=== PATIENT | female | born 1965 | race Caucasian/White ===

== ENCOUNTER → 2021-10-31 16:53 | Outpatient (CLI) | payer OTHER, MEDICAID, SELFPAY ==
[2021-09-25 11:37] VITALS: BMI 36.1
--- NOTE | 2021-10-31 | DI.US.S_ITS ---
PROCEDURE: US ABDOMEN COMPLETE INDICATIONS: elevation of levels of lactic acid dehydrogenase TECHNIQUE: Real-time scanning was performed of the abdominal and retroperitoneal organs, with image documentation. COMPARISON: [facility], CT, CT ANGIO CHEST PE PROTOCOL, 09/25/2021, 4:50. [facility], US, ABDOMEN COMPLETE, 03/30/2008, 15:20. FINDINGS: Liver: The liver measures 20 cm in length and demonstrates increased echogenicity throughout. Multiple hypoechoic foci are visualized within the liver, the largest of which measures 1.8 x 0.8 x 1.2 cm. Gallbladder: The gallbladder wall measures 1.4 mm in diameter. No stones, sludge, pericholecystic fluid, or sonographic [place] sign. Biliary ducts: Intrahepatic bile ducts are non-dilated. Extrahepatic bile duct caliber measures 3.1 mm. Normal is 6-7 mm or less in diameter, or 10 mm or less post-cholecystectomy. Pancreas: The pancreas is not well visualized. Spleen: The spleen measures 13.6 cm in length. Kidneys: Kidneys are normal in size and echotexture. Right kidney measures 12.8 cm long; left kidney measures 13.7 cm long. No hydronephrosis or nephrolithiasis. No solid masses. There are multiple anechoic renal cysts, the largest of which on the left measures 1.3 x 1.0 x 1.3 cm and the largest on the right measures 1.3 x 1.3 x 1.2 cm. Aorta: The proximal aorta is not visualized. Visualized aorta is normal in caliber at less than 3 cm. Iliacs: Proximal common iliac arteries are normal in caliber at less than 2.5 cm. IVC: Intrahepatic inferior vena cava is patent. Miscellaneous: No free abdominal fluid. IMPRESSION: 1. Increased hepatic echogenicity noted likely related to fatty infiltration of the liver but other sources of hepatocellular disease cannot be excluded. Multiple small hypoechoic foci are visualized within the liver which are incompletely characterized. Findings may represent focal fatty sparing or atypical hemangiomas. However, neoplasm cannot be excluded and hepatic protocol CT or MRI is recommended to further characterize findings. 2. Multiple simple renal cysts. 3. No cholelithiasis or findings to suggest choledocholithiasis or acute cholecystitis. Dictated by: Delia Francis M.D. on 11/01/2021 at 8:30 Approved by: Delia Francis M.D. on 11/01/2021 at 8:34
== END ==
PROVIDERS: PCP Family Medicine; Referring Provider Family Medicine; Visit Provider Family Medicine
DX: R74.02 Elevation of levels of lactic acid dehydrogenase [LDH] (principal); R07.89 Other chest pain; Q61.02 Congenital multiple renal cysts
CPT/HCPCS: 76700

== ENCOUNTER → 2021-11-20 15:08 | Outpatient (CLI) | payer OTHER, MEDICAID, SELFPAY ==
[2021-09-25 11:37] VITALS: BMI 36.1
--- NOTE | 2021-11-20 | DI.MRI.S_ITS ---
PROCEDURE: MR ABDOMEN WO/W CON INDICATIONS: HEPATOMEGALY TECHNIQUE: Coronal HASTE, axial 2D FLASH in- and [id number]; axial breath-hold T2 FSE. Dynamic axial VIBE during the administration of contrast; post-contrast coronal VIBE or 2D FLASH with fat saturation from the hepatic dome to the iliac crests. Optional diffusion weighted imaging and ADC may be performed. COMPARISON: [facility], CT, CT ANGIO CHEST PE PROTOCOL, 09/25/2021, 4:50. [facility], US, US ABDOMEN COMPLETE, 10/31/2021, 17:16. FINDINGS: Image quality: Excellent. Lung bases: There is enhancing pleural-based nodule posteromedially at the right lower lobe measuring 9 mm. Heart size is normal. Liver: Liver is enlarged measuring 24.0 cm in length. Moderate diffuse signal loss on T1 out of phase imaging indicating steatosis. There are several scattered rounded and ovoid areas of relative hyperintense signal on T1 out of phase imaging, not visible on inphase or T2 imaging, suggestive of focal fatty sparing. On fat saturated imaging these foci remain hyperintense to liver. No significant arterial hyperenhancement in any of these lesions. Other solid organs: Liver is normal in size and enhancement. Gallbladder normal wall thickness. Dependent sludge present. Biliary system is non dilated. Pancreas is normal in morphology. Spleen enlarged measuring 13.5 cm in length and normal in enhancement. No adrenal nodules. Both kidneys demonstrate normal size and enhancement, without hydronephrosis. Small bilateral renal cysts. Nodes and vessels: No retroperitoneal or mesenteric adenopathy by size criteria. Aorta and inferior vena cava are normal in size. Bowel and peritoneum: Unenhanced bowel loops are normal in caliber. No free fluid. Bones and soft tissues: No ventral hernias. Bone marrow is normal in overall signal. IMPRESSION: 1. Hepatosplenomegaly. 2. Moderate diffuse hepatic steatosis with nodular areas of probable focal fatty sparing. No suspicious enhancement. Overall heterogeneous appearance of the liver is similar compared to a CT 09/25/21. 3. 9 mm right lower lobe enhancing pleural-based nodule. Chest CT recommended in four months. Dictated by: Rafia Paige M.D. on 11/20/2021 at 16:40 Approved by: Rafia Paige M.D. on 11/20/2021 at 16:57
== END ==
PROVIDERS: PCP Family Medicine; Referring Provider Family Medicine; Visit Provider Family Medicine
DX: K76.0 Fatty (change of) liver, not elsewhere classified (principal); R16.2 Hepatomegaly with splenomegaly, not elsewhere classified; R91.1 Solitary pulmonary nodule
CPT/HCPCS: 74183; A9579

== ENCOUNTER → 2022-07-01 16:42 | Outpatient (CLI) | payer OTHER, MEDICAID, SELFPAY ==
[2021-09-25 11:37] VITALS: BMI 36.1
--- NOTE | 2022-07-01 | DI.MG.S_ITS ---
BILATERAL DIGITAL SCREENING MAMMOGRAM 3D/2D WITH CAD: 07/01/2022 CLINICAL: Routine screening. Comparison is made to exam dated: 12/14/2007 mammogram - [facility]. Both breasts are heterogeneously dense, which may obscure small masses (category c / 51-75% glandular tissue). Current study was also evaluated with a Computer Aided Detection (CAD) system. There are benign diffuse calcifications in both breasts. No significant masses, calcifications, or other findings are seen in either breast. There has been no significant interval change. IMPRESSION: BENIGN There is no mammographic evidence of malignancy. A 1 year screening mammogram is recommended. Based on the Tyrer Cuzick model (a risk assessment model) the patient's lifetime risk is 13.6% and her 10 year risk is 4.2%. According to the ACR, ACS, and NCCN guidelines, an annual breast MRI exam along with mammogram is recommended if the patient's lifetime risk is 20% or greater. This exam was interpreted at Station ID: [id number]. NOTE: For mammograms, a report in lay terms will be sent to the patient. Approximately 15% of breast malignancies will not be visualized mammographically. In the management of a palpable breast mass, a negative mammogram must not discourage biopsy of a clinically suspicious lesion. Electronically Signed By: Jose gunn/lily:07/02/2022 11:37:25 letter sent: Normal Exam ACR BI-RADS Category 2: Benign Finding(s) 3342F
== END ==
PROVIDERS: PCP Family Medicine; Referring Provider Family Medicine; Visit Provider Family Medicine
DX: Z12.31 Encounter for screening mammogram for malignant neoplasm of breast (principal)
CPT/HCPCS: 77063; 77067

== ENCOUNTER 2024-01-01 14:31 | Emergency (ER) | payer OTHER, MEDICAID, SELFPAY ==
[2021-09-25 11:37] VITALS: BMI 36.1
[2024-01-01 14:37] VITALS: BP 181/102; PULSE 118; RESP 16; TEMP 36.4; O2SAT 97; BMI 33.8
--- NOTE | 2024-01-01 14:49 | EKG_ITS ---
[address] [address] Test Date: 2024-01-01 Pat Name: Cyndee Zimmer Department: [facility] Room: Gender: Female Metrology Manager: MIKE : 1965 Requested By: Order Number: [id number] Reading MD: Gerhard Varghese Measurements Intervals [place] Rate: 107 P: 62 MT: 180 QRS: -45 QRSD: 102 T: 47 QT: 354 QTc: 472 Interpretive Statements Sinus tachycardia Left anterior fascicular block Minimal voltage criteria for LVH, may be normal variant ( R in aVL ) Anterior infarct , age undetermined Electronically Signed On 01-01-2024 16:28:50 PST by Gerhard Varghese
--- NOTE | 2024-01-01 14:56 | DI.RAD.S_ITS ---
PROCEDURE: XR CHEST 2V INDICATIONS: upper back pain rad to chest TECHNIQUE: 2 views of the chest were acquired. COMPARISON: Chest CT 04/21/22.. FINDINGS: Surgical changes and devices: None. Lungs and pleura: Lungs are clear. No pleural effusions or pneumothorax. Mediastinum: Mediastinal contours are normal. Heart size is normal. Bones and chest wall: No suspicious bony abnormalities. Soft tissues appear unremarkable. IMPRESSION: No acute cardiopulmonary abnormality is seen. Dictated by: Parvez Badillo M.D. on 01/01/2024 at 15:37 Approved by: Parvez Badillo M.D. on 01/01/2024 at 15:37
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
[2024-01-01 15:08] LABS: Add Manual Diff / Slide Review NO; Basophils Absolute Auto 0 /uL (0-100); Basophils Percent Auto 0.5 % (0-2); Eosinophils Absolute Auto 100 /uL (0-450); Eosinophils Percent Auto 1.8 % (2-4); Hematocrit 46.3 % (36-46); Hemoglobin 15.6 g/dL (12.0-16.0); Lymphocytes Absolute Auto 2300 /uL (1100-4500); Lymphocytes Percent Auto 32.3 % (25-40); Mean Corpuscular HGB Conc 33.8 % (30-36); Mean Corpuscular Hemoglobin 27.7 PG (26-34); Monocytes Absolute Auto 400 /uL (0-900); Monocytes Percent Auto 5.6 % (3-14); Neutrophils Absolute Auto 4300 /uL (1500-7000); Neutrophils Percent Auto 59.8 % (50-75); Platelet Count 245 X10^3/uL (150-400); Red Blood Cell Count 5.65 X10^6/uL (4.0-5.2); Red Cell Distribution Width 14.8 % (11.6-14.8); White Blood Cell Count 7.3 X10^3/uL (4.5-11.0)
[2024-01-01 15:19] LABS: Prothrombin Time 11.1 SECONDS (9.4-12.5)
[2024-01-01 15:21] LABS: PTT Partial Thromboplastin Tim 35 SECONDS (25.1-36.5)
[2024-01-01 15:23] LABS: Alanine Aminotransferase 116 IU/L (<35); Albumin 4.4 g/dL (3.5-5.0); Albumin Globulin Ratio 1.5 (1.0-2.8); Alkaline Phosphatase 182 U/L (38-126); Aspartate Aminotransferase 79 IU/L (14-36); BUN Creatinine Ratio 45.1 (6-22); Bilirubin Total 0.5 mg/dL (0.2-1.3); Blood Urea Nitrogen 23 mg/dL (7-17); Calcium 9.3 mg/dL (8.4-10.2); Carbon Dioxide 20 mmol/L (22-32); Chloride 100 mmol/L (98-107); Creatine Kinase 29 U/L (30-135); Estimated Glomerular Filt Rate > 60 mL/min (>60); Globulin 2.9 g/dL (1.7-4.1); Glucose 456 mg/dL (70-100); HEMOLYSIS < 15 (0-50); Lipase 84 U/L (23-300); Potassium 4.3 mmol/L (3.4-5.1); Sodium 134 mmol/L (137-145); Total Protein 7.3 g/dL (6.3-8.2)
[2024-01-01] MEDS: LIDOCAINE 5% PATCH 1 EACH TOP (15:23)
[2024-01-01 15:30] VITALS: BP 141/70; PULSE 94; RESP 18; O2SAT 93
[2024-01-01 15:36] LABS: Troponin I < 0.012 ng/mL (0.01-0.034)
[2024-01-01] MEDS: SODIUM CHLORIDE 0.9% 500 ML 1000 ML IV (15:37)
[2024-01-01 15:53] LABS: D Dimer 456 ng/ml (<500)
[2024-01-01 16:35] LABS: Bacteria Urine Few (2-10); RBC Urine 0-1/HPF (0-5/HPF); Squamous Epithelial Cell Urine 5-10 /HPF (0-5/HPF); Urine Volume 10mL (spun); WBC Urine 5-10/HPF (0-5/HPF)
[2024-01-01 17:34] LABS: Troponin I < 0.012 ng/mL (0.01-0.034)
[2024-01-01 17:43] VITALS: BP 127/71; PULSE 197; RESP 18; TEMP 36.6; O2SAT 94
== END 2024-01-01 17:48 | disposition home or self-care (01) ==
PROVIDERS: Emergency Provider Physician Assistant; PCP Family Medicine
DX: M54.6 Pain in thoracic spine (principal); E11.65 Type 2 diabetes mellitus with hyperglycemia; I10 Essential (primary) hypertension; E66.9 Obesity, unspecified; E86.0 Dehydration; R74.01 Elevation of levels of liver transaminase levels; Z79.84 Long term (current) use of oral hypoglycemic drugs; Z68.33 Body mass index [BMI] 33.0-33.9, adult
CPT/HCPCS: 36415; 71046; 80053; 81003; 81015; 82550; 82962; 83690; 84484; 85025; 85379; 85610; 85730; 87086; 93005; 99284

== ENCOUNTER → 2024-03-22 15:50 | Outpatient (CLI) | payer OTHER, SELFPAY ==
[2021-09-25 11:37] VITALS: BMI 36.1
--- NOTE | 2024-03-22 15:52 | DI.RAD.S_ITS ---
PROCEDURE: XR ANKLE LT MIN 3V INDICATIONS: ANKLE PAIN TECHNIQUE: 3 views of the ankle were acquired. COMPARISON: None. FINDINGS: Bones: No fractures or dislocations. Ankle mortise is normally aligned. No suspicious bony lesions. Soft tissues: No tibiotalar joint effusion. Achilles tendon appears normal. IMPRESSION: No acute bony abnormality or significant effusion. Dictated by: Sridhar Hdez M.D. on 03/23/2024 at 13:57 Approved by: Sridhar Hdez M.D. on 03/23/2024 at 13:58
--- NOTE | 2024-03-22 15:52 | DI.RAD.S_ITS ---
PROCEDURE: XR ANKLE RT MIN 3V INDICATIONS: ANKLE PAIN TECHNIQUE: 3 views of the ankle were acquired. COMPARISON: None. FINDINGS: Bones: No fractures or dislocations. Ankle mortise is normally aligned. No suspicious bony lesions. Soft tissues: No tibiotalar joint effusion. Achilles tendon appears normal. IMPRESSION: No acute bony abnormality or significant effusion. Dictated by: Sridhar Hdez M.D. on 03/23/2024 at 13:52 Approved by: Sridhar Hdez M.D. on 03/23/2024 at 13:55
== END ==
PROVIDERS: PCP Family Medicine; Referring Provider Family Medicine; Visit Provider Family Medicine
DX: M25.571 Pain in right ankle and joints of right foot (principal); M25.572 Pain in left ankle and joints of left foot
CPT/HCPCS: 73610

== ENCOUNTER 2024-05-05 13:23 | Emergency (ER) | payer OTHER, SELFPAY ==
[2021-09-25 11:37] VITALS: BMI 36.1
[2024-05-05 13:51] VITALS: BP 131/89; PULSE 109; RESP 18; TEMP 37; O2SAT 93; BMI 33.3
--- NOTE | 2024-05-05 13:56 | DI.RAD.S_ITS ---
PROCEDURE: XR FOOT RT MIN 3V INDICATIONS: pain TECHNIQUE: 3 views of the foot were acquired. COMPARISON: None. FINDINGS: Bones: Subtle cortical irregularity along lateral cortex of 5th metatarsal base is seen, subtle incomplete fracture in this area cannot be excluded suggest clinical correlation. No other fracture or dislocation. No suspicious bony lesions. Soft tissues: No tibiotalar joint effusion. Achilles tendon appears normal. IMPRESSION: Finding may represent subtle incomplete fracture involving lateral cortex of 5th metatarsal base/proximal shaft suggest clinical correlation for focal pain in this region. No other fracture or dislocation. Dictated by: Abimael Aguilar M.D. on 05/05/2024 at 14:25 Approved by: Abimael Aguilar M.D. on 05/05/2024 at 14:26
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
[2024-05-05] MEDS: KETOROLAC 30 MG/ML VIAL IM (17:20)
[2024-05-05 17:26] VITALS: BP 168/81; PULSE 109; O2SAT 93
== END 2024-05-05 17:41 | disposition home or self-care (01) ==
PROVIDERS: Emergency Provider Physician Assistant; PCP Family Medicine
DX: S92.354A Nondisplaced fracture of fifth metatarsal bone, right foot, initial encounter for closed fracture (principal); M79.671 Pain in right foot; E11.9 Type 2 diabetes mellitus without complications
CPT/HCPCS: 73630; 96372; 99283; J1885

== ENCOUNTER 2024-06-10 15:22 | Emergency (ER) | payer OTHER, SELFPAY ==
[2021-09-25 11:37] VITALS: BMI 36.1
[2024-06-10 15:50] VITALS: BP 132/83; PULSE 103; RESP 17; TEMP 36.4; O2SAT 96; BMI 33.5
--- NOTE | 2024-06-10 15:58 | EKG_ITS ---
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
[2024-06-10 16:15] LABS: Add Manual Diff / Slide Review NO; Basophils Absolute Auto 100 /uL (0-100); Basophils Percent Auto 0.8 % (0-2); Eosinophils Absolute Auto 100 /uL (0-450); Hemoglobin 15.5 g/dL (12.0-16.0); Lymphocytes Absolute Auto 3300 /uL (1100-4500); Lymphocytes Percent Auto 39.7 % (25-40); Mean Corpuscular HGB Conc 34.3 % (30-36); Mean Corpuscular Hemoglobin 27.7 PG (26-34); Mean Corpuscular Volume 80.5 fL (80-100); Monocytes Absolute Auto 500 /uL (0-900); Monocytes Percent Auto 5.8 % (3-14); Neutrophils Absolute Auto 4300 /uL (1500-7000); Neutrophils Percent Auto 52.7 % (50-75); Platelet Count 235 X10^3/uL (150-400); Red Blood Cell Count 5.59 X10^6/uL (4.0-5.2); Red Cell Distribution Width 14.8 % (11.6-14.8); White Blood Cell Count 8.2 X10^3/uL (4.5-11.0)
[2024-06-10 16:26] LABS: Alanine Aminotransferase 60 IU/L (<35); Albumin 4.5 g/dL (3.5-5.0); Albumin Globulin Ratio 1.5 (1.0-2.8); Alkaline Phosphatase 145 U/L (38-126); Aspartate Aminotransferase 45 IU/L (14-36); BUN Creatinine Ratio 56.4 (6-22); Bilirubin Total 0.5 mg/dL (0.2-1.3); Blood Urea Nitrogen 31 mg/dL (7-17); Calcium 9.6 mg/dL (8.4-10.2); Carbon Dioxide 21 mmol/L (22-32); Chloride 101 mmol/L (98-107); Estimated Glomerular Filt Rate > 60 mL/min (>60); Glucose 279 mg/dL (70-99); HEMOLYSIS < 15 (0-50); Lipase 136 U/L (23-300); Potassium 4.2 mmol/L (3.4-5.1); Sodium 135 mmol/L (137-145); Total Protein 7.5 g/dL (6.3-8.2)
[2024-06-10 20:06] VITALS: BP 173/84; PULSE 118; RESP 16; TEMP 36.9; O2SAT 96
[2024-06-10 20:33] LABS: Urine Volume Low Vol <10mL (spun)
[2024-06-10 20:36] LABS: Bacteria Urine Occasional (0-1); RBC Urine 0-1/HPF (0-5/HPF); Squamous Epithelial Cell Urine 0-1 /HPF (0-5/HPF); WBC Urine 0-1/HPF (0-5/HPF)
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
== END 2024-06-10 20:54 | disposition left against medical advice (07) ==
PROVIDERS: Emergency Medicine; Emergency Provider Family Medicine; PCP Family Medicine
DX: R07.81 Pleurodynia (principal)
CPT/HCPCS: 36415; 80053; 81003; 81015; 83690; 85025; 87086; 93005; 99283

== ENCOUNTER 2024-07-06 01:37 | Emergency (ER) | payer OTHER, SELFPAY ==
[2021-09-25 11:37] VITALS: BMI 36.1
[2024-07-06] VITALS (55 sets, daily range): BP systolic 114–211; BP diastolic 60–115; PULSE 108–126; RESP 12–24; TEMP 36.2; O2SAT 87–98; BMI 33.1
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
--- NOTE | 2024-07-06 01:41 | DI.RAD.S_ITS ---
PROCEDURE: XR CHEST 1V INDICATIONS: chest pain TECHNIQUE: One view of the chest was acquired. COMPARISON: [facility], CR, XR CHEST 2V, 01/01/2024, 14:55. FINDINGS: Surgical changes and devices: None. Lungs and pleura: Lungs are clear. No pleural effusions or pneumothorax. Mediastinum: Mediastinal contours appear normal. Heart size is normal. Bones and chest wall: No suspicious bony lesions. Overlying soft tissues appear unremarkable. IMPRESSION: No acute pulmonary process. Dictated by: Maura Harris M.D. on 07/06/2024 at 8:53 Approved by: Maura Harris M.D. on 07/06/2024 at 8:54
--- NOTE | 2024-07-06 01:41 | DI.RAD.S_ITS ---
PROCEDURE: XR SHOULDER LT MIN 2V INDICATIONS: left shoulder pain TECHNIQUE: 2 views of the shoulder were acquired. COMPARISON: None. FINDINGS: Bones: No fractures or dislocations. No suspicious bony lesions. Visualized ribs appear intact. Soft tissues: No suspicious soft tissue calcifications. IMPRESSION: No visualized acute fracture or dislocation. However, if clinical concern and/or pain persist, short interval imaging followup in 7-10 days is recommended, as occult injury cannot be definitively excluded. Dictated by: Maura Harris M.D. on 07/06/2024 at 8:54 Approved by: Maura Harris M.D. on 07/06/2024 at 8:54
--- NOTE | 2024-07-06 01:52 | EKG_ITS ---
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
[2024-07-06 02:09] LABS: Add Manual Diff / Slide Review NO; Basophils Absolute Auto 0 /uL (0-100); Basophils Percent Auto 0.5 % (0-2); Eosinophils Absolute Auto 100 /uL (0-450); Eosinophils Percent Auto 1.1 % (2-4); Hematocrit 45.7 % (36-46); Hemoglobin 15.9 g/dL (12.0-16.0); Lymphocytes Absolute Auto 2200 /uL (1100-4500); Lymphocytes Percent Auto 26.6 % (25-40); Mean Corpuscular HGB Conc 34.8 % (30-36); Mean Corpuscular Volume 80.5 fL (80-100); Monocytes Absolute Auto 500 /uL (0-900); Monocytes Percent Auto 6.5 % (3-14); Neutrophils Absolute Auto 5300 /uL (1500-7000); Neutrophils Percent Auto 65.3 % (50-75); Platelet Count 231 X10^3/uL (150-400); Red Blood Cell Count 5.68 X10^6/uL (4.0-5.2); Red Cell Distribution Width 14.9 % (11.6-14.8); White Blood Cell Count 8.2 X10^3/uL (4.5-11.0)
[2024-07-06] MEDS: ONDANSETRON 4 MG/2 ML INJ IV ×2 (02:11→13:40)
[2024-07-06] MEDS: MORPHINE 4 MG/ML INJ IV (02:11)
[2024-07-06 02:18] LABS: Alanine Aminotransferase 62 IU/L (<35); Albumin 4.6 g/dL (3.5-5.0); Albumin Globulin Ratio 1.4 (1.0-2.8); Alkaline Phosphatase 199 U/L (38-126); Aspartate Aminotransferase 47 IU/L (14-36); Bilirubin Total 0.5 mg/dL (0.2-1.3); Blood Urea Nitrogen 25 mg/dL (7-17); Calcium 10.4 mg/dL (8.4-10.2); Carbon Dioxide 21 mmol/L (22-32); Chloride 97 mmol/L (98-107); Creatine Kinase 29 U/L (30-135); Estimated Glomerular Filt Rate > 60 mL/min (>60); Globulin 3.2 g/dL (1.7-4.1); HEMOLYSIS < 15 (0-50); Lipase 103 U/L (23-300); Magnesium 1.4 mg/dL (1.6-2.3); Potassium 4.3 mmol/L (3.4-5.1); Sodium 133 mmol/L (137-145); Total Protein 7.8 g/dL (6.3-8.2)
[2024-07-06 02:29] LABS: Troponin I 0.029 ng/mL (0.01-0.034)
[2024-07-06 02:30] LABS: Glucose 454 mg/dL (70-99)
[2024-07-06] MEDS: LORazepam 0.5 MG TABLET 1 MG PO (02:37)
[2024-07-06] MEDS: SODIUM CHLORIDE 0.9% 1,000 ML 1000 ML IV ×2 (02:37→03:48)
[2024-07-06 03:31] LABS: Bacteria Urine Occasional (0-1); Culture Indicated Urine Cult Not Indicated; RBC Urine 0-1/HPF (0-5/HPF); Squamous Epithelial Cell Urine 0-1 /HPF (0-5/HPF); Urine Volume 10mL (spun); WBC Urine None Seen (0-5/HPF)
[2024-07-06] MEDS: diazePAM 5 MG TABLET PO (03:55)
[2024-07-06 04:29] LABS: BUN Creatinine Ratio 40.7 (6-22); Blood Urea Nitrogen 22 mg/dL (7-17); Calcium 9.5 mg/dL (8.4-10.2); Carbon Dioxide 21 mmol/L (22-32); Chloride 100 mmol/L (98-107); Estimated Glomerular Filt Rate > 60 mL/min (>60); Glucose 361 mg/dL (70-99); HEMOLYSIS < 15 (0-50); Potassium 3.8 mmol/L (3.4-5.1); Sodium 135 mmol/L (137-145)
--- NOTE | 2024-07-06 04:33 | PC.NURSE ---
Pt used call light and reports still having a pinching pain in her left arm and towards her back. 08/18. Dr. Womack notified., no new orders. Pt able to get off and on gurney with no issue and walk to the bathroom.
[2024-07-06 04:41] LABS: Troponin I 0.082 ng/mL (0.01-0.034)
--- NOTE | 2024-07-06 05:57 | PC.NURSE ---
Pt's HR 115-[address] Womack aware, no new orders a this time.
[2024-07-06] MEDS: HYDROMORPHONE 0.5 MG INJ IV (06:11)
[2024-07-06 06:38] LABS: Troponin I 0.173 ng/mL (0.01-0.034)
[2024-07-06] MEDS: HEPARIN 5,000 UNIT/ML VIAL 5000 UNIT IV (06:56)
[2024-07-06] MEDS: HEPARIN DRIP 25,000 UNIT/500 ML IV.SOLN 20 UNIT IV (06:58)
[2024-07-06] MEDS: NITROGLYCERIN 0.4 MG SL TAB SL (06:59)
[2024-07-06 07:07] LABS: Prothrombin Time 11.3 SECONDS (9.4-12.5)
[2024-07-06 07:10] LABS: PTT Partial Thromboplastin Tim 31 SECONDS (25.1-36.5)
[2024-07-06] MEDS: NITROGLYCERIN OINT 1 INCH/GM OINT...G. TOP (07:46)
--- NOTE | 2024-07-06 11:04 | EKG_ITS ---
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
--- NOTE | 2024-07-06 13:14 | PC.NURSE ---
Lab called and will need redraw for heparin. Lab to come for redraw
[2024-07-06 13:25] LABS: PTT Partial Thromboplastin Tim 72 SECONDS (25.1-36.5)
--- NOTE | 2024-07-06 13:32 | PC.NURSE ---
Pt 6 hour PTT level back at 72, which is goal. No changest to heparin gtt made. Pt alert and oriented. Reports slight headache, usually takes motrin. Unable to take due to heparin and pt states she has stomach upset with tylenol. Per dr. Botello 2mg morphiine ordered.
[2024-07-06] MEDS: MORPHINE 2 MG/ML INJ IV (13:40)
== END 2024-07-06 13:57 | disposition short-term general hospital (02) ==
PROVIDERS: Student in an Organized Health Care Education/Training Program; Emergency Provider Emergency Medicine; PCP Family Medicine
DX: I21.4 Non-ST elevation (NSTEMI) myocardial infarction (principal); M79.602 Pain in left arm
CPT/HCPCS: 36415; 71045; 73030; 80048; 80053; 81003; 81015; 82550; 83690; 83735; 84484; 85025; 85610; 85730; 93005; 96361; 96365; 96366; 96375; 96376; 99285; J1171; J1644; J2270; J2405

== ENCOUNTER 2024-07-22 14:53 | Emergency (ER) | payer OTHER, SELFPAY ==
[2024-07-06 11:26] VITALS: BMI 33.1
[2024-07-22] VITALS (13 sets, daily range): BP systolic 128–149; BP diastolic 65–87; PULSE 100–104; RESP 14–27; TEMP 37; O2SAT 93–96; BMI 32.9
--- NOTE | 2024-07-22 15:02 | DI.RAD.S_ITS ---
PROCEDURE: XR CHEST 1V INDICATIONS: Chest Pain TECHNIQUE: One view of the chest was acquired. COMPARISON: [facility], CR, XR CHEST 1V, 07/06/2024, 2:19. FINDINGS: Surgical changes and devices: None. Lungs and pleura: Lungs are clear. No pleural effusions or pneumothorax. Mediastinum: Mediastinal contours appear normal. Heart size is normal. Bones and chest wall: No suspicious bony lesions. Age-appropriate bony degenerative changes are seen. Overlying soft tissues appear unremarkable. IMPRESSION: No acute cardiopulmonary abnormality is seen. Dictated by: Reuben Peres M.D. on 07/22/2024 at 14:44 Approved by: Reuben Peres M.D. on 07/22/2024 at 14:44
--- NOTE | 2024-07-22 15:08 | EKG_ITS ---
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
[2024-07-22 15:21] LABS: Add Manual Diff / Slide Review NO; Basophils Absolute Auto 100 /uL (0-100); Basophils Percent Auto 0.9 % (0-2); Eosinophils Absolute Auto 100 /uL (0-450); Eosinophils Percent Auto 1.9 % (2-4); Hematocrit 42.7 % (36-46); Lymphocytes Absolute Auto 2700 /uL (1100-4500); Lymphocytes Percent Auto 36.6 % (25-40); Mean Corpuscular Hemoglobin 28.1 PG (26-34); Mean Corpuscular Volume 80.2 fL (80-100); Monocytes Absolute Auto 400 /uL (0-900); Monocytes Percent Auto 5.8 % (3-14); Neutrophils Absolute Auto 4100 /uL (1500-7000); Neutrophils Percent Auto 54.8 % (50-75); Platelet Count 290 X10^3/uL (150-400); Red Blood Cell Count 5.33 X10^6/uL (4.0-5.2); Red Cell Distribution Width 14.9 % (11.6-14.8); White Blood Cell Count 7.5 X10^3/uL (4.5-11.0)
[2024-07-22 15:29] LABS: Prothrombin Time 11.3 SECONDS (9.4-12.5)
[2024-07-22 15:32] LABS: PTT Partial Thromboplastin Tim 32 SECONDS (25.1-36.5)
[2024-07-22 15:35] LABS: Alanine Aminotransferase 42 IU/L (<35); Albumin 4.5 g/dL (3.5-5.0); Albumin Globulin Ratio 1.5 (1.0-2.8); Alkaline Phosphatase 138 U/L (38-126); Aspartate Aminotransferase 38 IU/L (14-36); BUN Creatinine Ratio 35.1 (6-22); Bilirubin Total 0.7 mg/dL (0.2-1.3); Blood Urea Nitrogen 20 mg/dL (7-17); Calcium 9.8 mg/dL (8.4-10.2); Carbon Dioxide 21 mmol/L (22-32); Chloride 101 mmol/L (98-107); Creatine Kinase 24 U/L (30-135); Estimated Glomerular Filt Rate > 60 mL/min (>60); Globulin 3.1 g/dL (1.7-4.1); Glucose 294 mg/dL (70-99); HEMOLYSIS < 15 (0-50); Lipase 75 U/L (23-300); Magnesium 1.2 mg/dL (1.6-2.3); Potassium 4.1 mmol/L (3.4-5.1); Sodium 135 mmol/L (137-145); Total Protein 7.6 g/dL (6.3-8.2)
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
[2024-07-22 15:46] LABS: NT-proBNP (BNP-Adult 18+) 1060 pg/mL (<125); Troponin I < 0.012 ng/mL (0.01-0.034)
--- NOTE | 2024-07-22 16:26 | DI.CT.S_ITS ---
PROCEDURE: CT ANGIO CHEST PE PROTOCOL INDICATIONS: chest pain, 2 wks s/p cardiac stent TECHNIQUE: After the administration of intravenous contrast, 2 mm thick sections acquired from the pulmonary apices to the posterior costophrenic angles. 3-dimensional maximum intensity projection (MIP) coronal and sagittal reformats were then acquired through the thorax. For radiation dose reduction, the following was used: automated exposure control, adjustment of mA and/or kV according to patient size. COMPARISON: [facility], MR, MR ABDOMEN WO/W CON, 11/20/2021, 15:34. [facility], CT, CT CHEST WITHOUT CONTRAST, 04/21/2022, 15:08. [facility], CR, XR CHEST 1V, 07/22/2024, 15:05. [facility], CT, CT ANGIO CHEST PE PROTOCOL, 09/25/2021, 4:50. FINDINGS: Image quality: Diagnostic. Pulmonary arteries: Pulmonary arteries are normal in size, and demonstrate no intraluminal filling defects to suggest central pulmonary embolism. Lower Neck: No enlarged lymph nodes. Thyroid: No thyroid nodules which require sonographic follow up, per consensus guidelines. Axillae: No enlarged lymph nodes. Chest Wall: Unremarkable. Bones: Unremarkable. Lungs and Pleura: No pneumothorax or pleural effusions. Multiple subpleural nodules are seen, with the largest seen within the right lower lobe posteriorly, measuring 7-8 mm, without significant change compared to 2021. No consolidation or suspicious nodules. Heart: Heart size is normal. No pericardial effusion. At least moderate coronary artery calcification can be seen. There is at least 1 cardiac stent present. Thoracic Vessels: No aortic aneurysm. Mediastinum and [place]: No enlarged lymph nodes. Esophagus: No wall thickening. No hiatal hernia. Upper Abdomen: The liver is enlarged. No focal liver lesion is seen. A right adrenal nodule is seen, as on series 4, image 131, measuring 11 mm. The visualized portions of the upper abdominal structures are otherwise unremarkable for imaging technique. IMPRESSION: No pulmonary embolus. No acute cardiopulmonary process. Stable subpleural pulmonary nodules are seen, which are regarded to be benign, given the stability over time. 11 mm right adrenal nodule incidentally noted. -the Please consider a dedicated adrenal protocol MRI for further evaluation (assuming that there is no contraindication). Additional findings: Moderate coronary artery calcification Cardiac stent Hepatomegaly Dictated by: Reuben Peres M.D. on 07/22/2024 at 16:20 Approved by: Reuben Peres M.D. on 07/22/2024 at 16:24
[2024-07-22] MEDS: diphenhydrAMINE 50 MG/ML VIAL IV (16:36)
[2024-07-22] MEDS: methylPREDNISolone 125 MG/2 ML VIAL IV (16:36)
--- NOTE | 2024-07-22 17:24 | EKG_ITS ---
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
[2024-07-22 17:50] LABS: Troponin I < 0.012 ng/mL (0.01-0.034)
== END 2024-07-22 19:17 | disposition home or self-care (01) ==
PROVIDERS: Emergency Medicine; Emergency Provider Student in an Organized Health Care Education/Training Program; PCP Family Medicine
DX: R07.9 Chest pain, unspecified (principal); I25.2 Old myocardial infarction; Z95.5 Presence of coronary angioplasty implant and graft; E27.8 Other specified disorders of adrenal gland
CPT/HCPCS: 36415; 71045; 71275; 80053; 82550; 83690; 83735; 83880; 84484; 85025; 85610; 85730; 93005; 96374; 96375; 99284; J1200; J2919; Q9967

== ENCOUNTER → 2024-10-27 16:44 | Outpatient (CLI) | payer OTHER, SELFPAY ==
[2024-07-06 11:26] VITALS: BMI 33.1
--- NOTE | 2024-10-27 16:46 | DI.RAD.S_ITS ---
PROCEDURE: XR FOOT RT MIN 3V INDICATIONS: RT FOOT PAIN TECHNIQUE: 3 views of the foot were acquired. COMPARISON: Merged With [facility], , XR FOOT RT MIN 3V, 05/05/2024, 14:06. FINDINGS: Bones: Slight hammertoe deformities 2nd through 5th digits. Joints: Moderate 2nd through 5th interphalangeal joints . Soft tissues: Mild diffuse plantar soft tissue swelling likely edema IMPRESSION: Chronic findings Dictated by: Emre Kwon M.D. on 10/28/2024 at 8:03 Approved by: Emre Kwon M.D. on 10/28/2024 at 8:05
== END ==
PROVIDERS: PCP Registered Nurse; Referring Provider Registered Nurse; Visit Provider Registered Nurse
DX: S92.351A Displaced fracture of fifth metatarsal bone, right foot, initial encounter for closed fracture (principal)
CPT/HCPCS: 73630

== ENCOUNTER 2024-11-18 09:08 | Emergency (ER) | payer OTHER, SELFPAY ==
[2024-07-06 11:26] VITALS: BMI 33.1
[2024-11-18 09:14] VITALS: BP 148/83; PULSE 111; RESP 16; TEMP 37.1; O2SAT 98; BMI 33.6
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
[2024-11-18 11:42] VITALS: BP 126/78; PULSE 90; RESP 16; O2SAT 96
== END 2024-11-18 11:44 | disposition home or self-care (01) ==
PROVIDERS: Emergency Provider Physician Assistant; PCP Registered Nurse
DX: K08.89 Other specified disorders of teeth and supporting structures (principal)
CPT/HCPCS: 99281